=== PATIENT | female | born 1950 | race Caucasian/White ===

== ENCOUNTER → 2017-06-03 | Outpatient (CLI) | payer MEDICARE, OTHER ==
[~2017-06-03] MED LIST: ABILIFY10 MG PO; ACTONEL5 MG PO; ALENDRONATE SOD70 MG PO; AMLODIPINE10 MG PO; B-121000 MCG PO; CAL-600 W/D 6001 TAB PO; D-31000 IU PO; DEPAKOTE 500MG500 MG PO; DULERA1 AR1 IH; ECOTRIN325 MG PO; FEXOFENADINE180 MG PO; FLUTICASONE 50M16 GM; KLONOPIN 0.5MG0.5 MG NG; LORTAB 5/500 501 TAB PO; METOPROLOL TART50 MG PO; MICARDIS80 MG PO; NEXIUM20 MG PO; PERCOCET 5/3251 EACH PO; PRAVASTATIN 40M40 MG PO; PREDNISONE 1MG.1 MG PO; SINGULAIR 10 MG10 MG PO; STADOL2 MG/ML IH; TREXIMET 500 MG1 TAB PO; VENTOLIN H0.09 MG/AC IH; WELLBUTRIN XL300 MG PO; XOPENEX1.25 MG/3 IH
--- NOTE | 2017-06-03 12:18 | RADIOLOGY REPORT PS360 ---
FOOT-LT-3 VIEWS HISTORY: Left foot pain LEFT ANKLE PAIN ORDERING PHYSICIAN: Yvonne Putnam APRN PATIENT AGE: 66 years COMPARISON: None FINDINGS: No fracture or dislocation. No lytic or blastic change. There is normal mineralization.. The joint spaces are well-preserved. No significant degenerative/arthritic changes. No erosive changes evident. IMPRESSION: Negative left foot, no acute finding
== END ==
LOC: RAD 11:40
DX: M25.572 Pain in left ankle and joints of left foot (principal)